=== PATIENT | female | born 1990 | race Two or more races ===

== ENCOUNTER 2018-02-10 09:24 | Day surgery (SDC) | payer OTHER ==
[~2018-02-10] VITALS: Ht 152.4 cm; Wt 61.0 kg
[~2018-02-10 09:24] MED LIST: MEGACE20 MG PO; VALISONE 0.1%15 GM TP; ZYRTEC10 M3 PO
[2018-02-10 10:14] VITALS: BP 103/65
[2018-02-10 13:25] VITALS: BP 107/58
[2018-02-10 14:24] VITALS: BP 97/56
== END 2018-02-10 14:38 | disposition home or self-care (01) ==
LOC: SDC 09:24
DX: N84.0 Polyp of corpus uteri (principal); N85.4 Malposition of uterus; L28.0 Lichen simplex chronicus; Z98.51 Tubal ligation status; Z83.3 Family history of diabetes mellitus
CPT/HCPCS: 88305; J0690; J1885; J2250; J2405; J3010